=== PATIENT | female | born 1955 ===

== ENCOUNTER 2018-03-10 06:12 | Day surgery (SDC) | payer OTHER ==
[2018-03-07 11:29] LABS: Urine Appearance CLEAR; Urine Bilirubin NEGATIVE (NEG); Urine Blood NEGATIVE (NEG); Urine Color YELLOW; Urine Glucose NEGATIVE (NEG); Urine Protein NEGATIVE (NEG); Urine Urobilinogen 0.2 mg/dL (0.2-1.0); Urine pH 6.5 (5.0-7.0)
[2018-03-07 11:30] LABS: Absolute Lymphocytes (CBC) 1.8 K/uL (0.7-4.9); Absolute Monocytes 0.5 K/uL (0.1-1.3); Absolute Neutrophil 4.2 K/uL (1.8-8.0); Basophils % 0.3 % (0-1.3); Eosinophils % 1.7 % (0-4.4); Hematocrit 40.7 % (36.0-45.0); Lymphocytes % 26.7 % (15.3-44.8); MCH 31.3 pg (27.0-35.0); MPV 9.9 fL (7.6-11.3); Monocytes % 7.6 % (3.3-12.3); RBC Red Blood Cell Count 4.42 M/uL (3.86-4.86)
[2018-03-07 11:36] LABS: Urine Microscopic Reflex NO UMIC
[2018-03-07 11:40] LABS: Bicarbonate 29 mEq/L (21-31); Glucose Level 100 mg/dL (65-120); Potassium 4.2 mEq/L (3.6-5.0); Sodium Level 140 mEq/L (135-145)
[2018-03-07 11:41] LABS: BUN Blood Urea Nitrogen 19 mg/dL (6-20)
[2018-03-07 11:42] LABS: Protime INR 0.93
--- OUTSIDE RECORDS SUMMARY | 2018-03-10 06:17 | XMS REPORT ---
:1955 Author Organization eClinicalWorks Care Team Providers Name Role Phone Rupali Shay Provider Role Unavailable Allergies, Adverse Reactions, Alerts Substance Reaction Event Type Lodine Info Not Available Drug Allergy Vicodin Info Not Available Drug Allergy Pepcid Info Not Available Drug Allergy Problems Problem Type Condition Code Onset Dates Condition Status Assessment Bladder mass N32.89 Active Problem Bladder mass N32.89 Active Medications Medication Code Code Instructions Start End Status Dosage System Date Date Calcium [facility] 22349681310 600 MG Orally Active 1 tablet Twice a day with meals Aleve ND 75430227702 220 MG Orally Active 1 tablet every 12 hrs with food or milk as needed Cipro ND 56255650519 500 MG Orally February 02, Active 1 tablet Once a day 2017 Mirapex [facility] 33751230004 0.125 MG Orally Active 1 tablet Once a day before bedtime Tylenol ND 63531425240 325 MG Orally Active 1 tablet every 4 hrs as needed Omeprazole ND 81609661591 40 MG Orally Active 1 capsule Once a day Multi Vitamin [facility] 67436768953 - Orally Once a Active 1 tablet day Premarin ND 38138006329 0.625 MG/GM Active not Vaginal defined Results Name Result Date Reference Range Unit Abnormality Flag URINALYSIS with rfx to URINE CULTURE URINALYSIS AUTO W/O SCOPE (85047) ----KARINA neg [id number] ----NIT neg [id number] ----PROTEIN neg [id number] ----pH 5.5 20180202 ----GLUCOSE neg [id number] ----KETONES neg [id number] ----SPECIFIC GRAVITY 1.020 20180202 ----BLO neg [id number] PVR ----PVR 40 [id number] Summary Purpose eClinicalWorks Submission
--- OUTSIDE RECORDS SUMMARY | 2018-03-10 06:17 | XMS REPORT ---
[...] Start End Status Dosage System Date Date Premarin [facility] 04617385433 0.625 MG/GM Active not Vaginal defined Multi Vitamin [facility] 40266181955 - Orally Once a Active 1 tablet day Omeprazole ND 76392823700 40 MG Orally Active 1 capsule Once a day Aleve ND 00992320318 220 MG Orally Active 1 tablet every 12 hrs with food or milk as needed Tylenol ND 86026453480 325 MG Orally Active 1 tablet every 4 hrs as needed Cipro ND 23958679756 500 MG Orally February 02, Active 1 tablet Once a day 2017 Mirapex [facility] 76281940121 0.125 MG Orally Active 1 tablet Once a day before bedtime Calcium [facility] 50194124394 600 MG Orally Active 1 tablet Twice a day with meals Results Name Result Date Reference Range Unit Abnormality Flag URINALYSIS AUTO W/O SCOPE (01711) ----KARINA neg [id number] ----NIT neg 20180301 ----PROTEIN neg 20180301 ----pH 6.0 20180301 ----GLUCOSE neg 20180301 ----KETONES neg 20180301 ----SPECIFIC GRAVITY 1.010 20180301 ----BLO neg [id number] Summary Purpose eClinicalWorks Submission
--- OUTSIDE RECORDS SUMMARY | 2018-03-10 06:17 | XMS REPORT ---
:1955 Author Organization eClinicalWorks Care Team Providers Name Role Phone Pajaro, Rupali Provider Role Unavailable Allergies No Known Allergies Problems Problem Type Condition Code Onset Dates Condition Status Problem Bladder mass N32.89 Active Medications No Known Medications Results No Known Results Summary Purpose eClinicalWorks Submission
--- OUTSIDE RECORDS SUMMARY | 2018-03-10 06:17 | XMS REPORT ---
:1955 Author Organization eClinicalWorks Care Team Providers Name Role Phone Rupali Shay Provider Role Unavailable Allergies No Known Allergies Problems Problem Type Condition Code Onset Dates Condition Status Problem Bladder mass N32.89 Active Medications Medication Code Code Instructions Start End Status Dosage System Date Date Ciprofloxacin HCl [facility] 50378783109 500 MG Orally 1 February 24, February 25, Active 1 tablet tab 1 hour 2017 2017 prior to appointment Results No Known Results Summary Purpose eClinicalWorks Submission
[2018-03-10] MEDS ORDERED: Ringers Lactate 1,000 ML IV ONE ×5 (06:22→19:49)
[2018-03-10] MEDS ORDERED: NA CHLORIDE 0.9% 100 ML IV ONE (06:58)
[2018-03-10] MEDS ORDERED: CEFAZOLIN/SWI 1gm 1 GM/10 ML SYR ONE (06:58)
[2018-03-10] MEDS ORDERED: PROPOFOL 200 MG/20 ML VIAL IV ONE (07:19)
[2018-03-10] MEDS ORDERED: FENTANYL CITR 250 MCG/5 ML ONE (07:20)
[2018-03-10] MEDS ORDERED: ROCURONIUM 50 MG/5 ML VIAL IV ONE ×3 (07:20→11:33)
[2018-03-10] MEDS ORDERED: MIDAZOLAM HCL 2 MG/2 ML INJ ONE (07:21)
[2018-03-10] MEDS ORDERED: ONDANSETRON HCL 40 MG/20 ML VIAL ONE ×2 (07:22→11:57)
[2018-03-10] MEDS: VASOPRESSIN 20 UNIT/ML VIAL ONE ×2 (07:23→08:15)
[2018-03-10] MEDS ORDERED: LIDOCAINE 1% MPF 2 ML AMPULE ONE (07:23)
[2018-03-10] MEDS: CEFAZOLIN/SWI 2gm 2 GM/20 ML SYR IV SCH ×2 (07:24→07:33)
[2018-03-10] MEDS ORDERED: DEXAMETHASONE 10 MG/ML VIAL ONE (07:48)
[2018-03-10] MEDS ORDERED: GLYCOPYRROLATE 0.2 MG/ML SYR ONE (10:41)
[2018-03-10] MEDS ORDERED: NEOSTIGMINE 1 MG/ML -5 ML SYRINGE ONE (10:41)
[2018-03-10] MEDS ORDERED: CEFAZOLIN SODIUM 1 GM/VIAL ONE (11:41)
[2018-03-10] MEDS ORDERED: NS 0.9% VIAL 10 ML ONE (11:41)
[2018-03-10] MEDS ORDERED: LIDOCAINE 1% W/EPI 1:100,000 MDV 50 ML VIAL ONE (11:42)
[2018-03-10 13:00] VITALS: O2SAT 95
[2018-03-10] MEDS ORDERED: ACETAMINOPHEN 325 MG TABLET ONE (13:24)
[2018-03-10] MEDS: ACETAMINOPHEN 325 MG TABLET PO PRN (13:30)
[2018-03-10] MEDS ORDERED: Morphine 2 MG/2 ML SYR IV PRN (13:41)
[2018-03-10 13:42] VITALS: BMI 36.7
[2018-03-10] MEDS ORDERED: PROMETHAZINE 25 MG/ML VIAL IV PRN ×2 (13:42→13:43)
[2018-03-10] MEDS ORDERED: Ringers Lactate 1,000 ML IV SCH (14:00)
[2018-03-10] MEDS: CEFAZOLIN/SWI 1gm 1 GM/10 ML SYR IV SCH (19:30)
[2018-03-11] MEDS: CEFAZOLIN/SWI 1gm 1 GM/10 ML SYR IV SCH (05:00)
[2018-03-11] MEDS ORDERED: CEFAZOLIN/SWI 1gm 1 GM/10 ML SYR ONE (05:05)
[2018-03-11 06:51] LABS: Absolute Monocytes 1.1 K/uL (0.1-1.3); Absolute Neutrophil 11.3 K/uL (1.8-8.0); Basophils % 0.3 % (0-1.3); Hematocrit 34.2 % (36.0-45.0); Lymphocytes % 13.9 % (15.3-44.8); MCH 30.5 pg (27.0-35.0); MCV 92.9 fL (80-100); Monocytes % 7.4 % (3.3-12.3); RBC Red Blood Cell Count 3.68 M/uL (3.86-4.86)
[2018-03-11] MEDS: ACETAMINOPHEN 325 MG TABLET PO PRN (07:22)
[2018-03-11 08:15] VITALS: BP 129/67; TEMP 98.2
--- NOTE | 2018-03-11 09:26 | OP ---
Date of Procedure: 03/10/2018 Surgeon: Almaz Buckley MD Garbage Collector: Leann Littlejohn. Preoperative Diagnoses: Stage II anterior wall prolapse, stage III posterior wall prolapse, and stag e II apical prolapse, stress urinary incontinence. Postoperative Diagnoses: Stage II anterior wall prolapse, stage III posterior wall prolapse, and sta ge II apical prolapse, stress urinary incontinence, and posterior enterocele, perineocele. Procedures Performed: 1.Cystocele repair with sutures alone (primary repair). 2.Bilateral sacrospinous ligament fixation, colpopexy. 3.Posterior wall repair with graft augmentation using Xenform biologic graft. This includes the pos terior enterocele repair, perineorrhaphy, and perineocele repair. 4.Mid urethral sling (TVT-O) and cystoscopy. Anesthesia: General. Estimated Blood Loss: 200. Urine Output: 300. Drains: House catheter and vaginal packing. Complications: No complications. Condition: Patient's condition is stable. Indications: The patient is a 62-year-old with vaginal prolapse symptoms. Has been my patient for a bout over 2 years. She has had bulge symptoms and voiding dysfunction symptoms. She has been placed on a vaginal pessary for 2 years. During the use of this, there were vaginal erosions from the pess tonya that were treated with local hormone therapy. However, the patient feels quite frustrated with t he pessary management and wanted to get surgical management for definitive therapy. Description Of Procedure: After informed consent was discussed and done, she was brought to the OR. She was consented for an anterior prolapse repair with synthetic graft augmentation because of the s uspicion that there was a significant lateral drop as well; however, later on in the intraoperative f indings, she did not need the synthetic graft. Going back again to the preop, she was also counseled about biologic Xenform graft augmentation in the posterior compartment if the defect is large or tis bret is very poor; however, primary repair is the most commonest repair and there is no indication for any synthetic posterior wall repair with graft augmentation. Due to the DARY, the plan was to put in a mid urethral sling transobturator approach. The patient was consented and taken to the OR. 2 g of Ancef were given. The patient was taken back to the OR, placed in supine fashion on the opera ting table. General anesthesia was given. She was placed in dorsal lithotomy position using Chris s tirrups in the lithotomy position. Lower abdomen, vulva, vagina, and perineum were prepped and drape d in a sterile fashion. House was placed to drain the bladder. Then, pelvic exam was performed. At this point, her POP-Q was 0, 0, -1 . On examination of the lateral sulci in the anterior wall, they were intact. The cystocele appeared to be mostly midline. The urethrovesical junction al though seemed to be preserved, its dislocation was mild. An Allis clamp was placed at the area just proximal to the urethrovesical junction and another Allis placed in the midline right above the level of the vaginal apex. The vaginal apices were held with t he help of Allis clamps, so that the apex could be noted. Dilute vasopressin 20 cc was injected here in the midline and laterally, dissection was carried to separate the vaginal epithelium and separate the epithelium from the fascial layer on the anterior wall. Once this was done after opening up the entire incision using the 15 blade and then Metzenbaum scissors, the entire bladder that was bulging was visualized. Three 2-0 PDS sutures were placed in horizontal mattress fashion from side to side after identifying the good pubocervical fascia . Then these 3 sutures were first placed an d the distal most suture was placed at the level right above the bladder neck as a Christy p lication suture. Once these all were tied down, then the vaginal epithelium was closed with the help of a 2-0 Vicryl in a continuous running horizontal mattress fashion. This reduced the bulge in a ve ry optimal fashion without any vaginal shortening. Proceeded with posterior wall repair. Injection with dilute vasopressin was conducted. 30 cc were i njected in the posterior wall. Then the perineum and the posterior wall were opened up with a triang ular incision on the perineum and the midline incision on the posterior wall. Vaginal epithelium ___ were dissected away from the rectovaginal septum and its remnants. About 4 cm proximal to th e hymenal ring, there was evidence of no fascial layer. There was a large posterior enterocele that needs encompassing about 4 cm of the vaginal wall. This was carefully dissected all the way to the l ateral attachments, and once the entire posterior enterocele was dissected free, it was well visualiz ed on all sides. There was hemostasis that needed to be secured with 3-0 Vicryl interrupted sutures in multiple places . At all times, good hemostasis was maintained. posterior e nterocele was dissected the rectovaginal septum was isolated. There was a large defect th at could not be gapped with the help of sutures reattaching the proximal part of the rectovaginal sep jerzy the vaginal apex. At this point, plan was made to use Xenform biologic graft __ the ischial spines were palpated on both sides. They were somewhat less prominent; however, sacro spinous ligaments should be accessible no matter how the with this. After opening the pararectal space on the right and then on the left side, dissection was carried to the level of the ischial spine medially and posteriorly towards the coccyx. The sacrospin ous ligament was isolated from the coccygeus muscles, first on the right side then on the left side _ was left in place. I plicated posterior enterocele. The peritoneum was plicated together with the help of 2-0 Vicryl avila ture in a pursestring fashion being careful to get all the way up to the level of the vagi nal apex. The whole enterocele was closed in a 4 cm distance. Once this was well reduced, then the rectovaginal septum was brought together with the help of interrupted 2-0 PDS x3. Then the perineal body was visualized. The perineal body was held with clamps. There was evidence of no perineal body in the midline. So laterally dissection was carried to open up the cut ends of the super ficial transverse perineal and deep transverse perineal muscles. Once this was done, then all these were brought together with a finger in the rectum check and make sure that we did not go deep enough, and all the transverse muscles were brought together with interrupted 2-0 Vicryl sutures. Without a ny problems, about 8 sutures were placed in 2 layers, 4 sutures in each layer. Once this was brought together, there was excellent perineal body. So at this point, we checked to make sure that there w as no narrowing at the level of the levators. The levators were not plicated together fin hazel showed that the plication was optimal the perineal body was thick. The genital hiatus was down to 3.5 cm. Then, I went back up on the right sacrospinous ligament. Prolene suture was used, 2 cm medial and po sterior to the ischial spine, this was placed. There was a good bite opposite sacrospinou s ligament as well. Capio device was used to take a Prolene bite. This appeared to be a little bit more lateral than the prior stitch location on the sacrospinous ligament. Both these were held on curved clamp. Then three 2-0 Prolene sutures were placed, one in the midline and the other a centimeter and half from the midline where the attachment of the uterosacral ligamen ts would be. These were picked up with Allis clamps and made sure that the Prolene did not _ vaginal lining or was too close to it. Once these sutures were placed, there were held on . Two PDS sutures were placed about 4 to 5 cm from the hymenal ring on the lateral vagi nal wall on the posterior side. These sutures were held on long hemostats and . Opened the biologic Xenform graft. The graft was trimmed to 8 cm in its largest distance from 12 and the length was trimmed down 1 cm. Arms were created on each side that were about a centimeter on ea ch side. Then, the 7 cm of the graft was left in place with markings for each centimeter in the dist al part so that it could be trimmed as needed. the sutures were all marked as well and then the graft introduced. All the 5 sutures at t he apex starting at the left sacrospinous, all of the apical sutures, and the right sacrospinous were all anchored. The sacrospinous sutures . Once this was done, these were all passed and t hey were all tied down systematically from left to right. The middle 3 were tied and then the left and right sacrospinous sutures were tied. Once this was all done in anterior as pect, the vaginal epithelium was started to be closed. There was erosion on the left side of the inc ision at the apex. 2-0 Vicryl was used in a continuous running locked fashion to place st itches. These were left in place and then . Then went on to attach the biologic graft to the lateral mcginnis and one more fixation about 2 cm distal to the first PDS. Two sutures w ere done on the same side. perineal body was rebuilt in the center. I put another 2-0 PD S suture, 1 on each side to tack the graft down to the perineal body. Once this was all satisfactory and the entire graft was laid flat and the apex appeared to be pulled up well enough and vaginal muc christiano was trimmed probably about half a centimeter on each side, then the scar in the posterior aspect was also excised from her deliveries most likely. continuous running closure of the vagin al epithelium in a horizontal mattress fashion was done to the level of the hymen. Then 3-0 Vicryl w as used to close the subcutaneous in subcuticular fashion to close the perineal incisions. Rectal ex am was performed. No evidence of any trauma or foreign body in the rectum. Sacrospinous sutures wer e also fine. Mid urethral sling was started. 1 cm mid urethral incision was made after injecting dilute _lidocaine. The patient was in high lithotomy. Then dissection was performed to the ipsilateral inf erior pubic ramus. pointing at the ipsilateral shoulder. Once the track was created on t he right and left placed first on the right then on the left. trocars removed. Mesh graft held with Christy's tensioning was done with the help of Metzenbaum scissors in the midline between the urethra and the graft. Once these were tensioned, the sheaths were pulled o ut. The vaginal mesh was cut very close to the skin . The skin incisions were closed with the help of Dermabond, mid urethral incision closed with the help of 3-0 Vicryl in a cont inuous running locked fashion. There was excellent hemostasis. The EBL was minimal, and now after r emoving the House, cystoscopy was performed. The House had at least of urine. Then, once the cysto was performed, there was excellent visualization of the entire bladder. Both u reteric orifices were well visualized. There were strong jets of urine from each of the ureteric maryjo fices. No other abnormalities were seen. cystoscopy to confirm that there was no uretera l obstruction from sacrospinous fixation. The vagina was packed after the bladder was drained and the patient was recovered from anesthesia. I nstrument, needle, and sponge counts x3 were correct at the end of the case. The patient tolerated t he procedure well. she will be admitted on the outpatient side of the hospital in a bed, and she will follow up with me in 1 week. I will have voiding trials tomorrow. Second gram of Ancef was given. DONG/STACY Voice ID: [id number] Report ID: [id number]
== END 2018-03-11 10:45 | disposition home or self-care (01) ==
LOC: OR 06:12 → 2ND-WC 13:33 → OR 03-11 10:45
PROVIDERS: ATTEND Obstetrics & Gynecology
PROC: 0JQC0ZZ Repair Pelvic Region Subcutaneous Tissue and Fascia, Open Approach (ICD-10-PCS; 2018-03-10)
PROC: 0JUC0JZ Supplement of Pelvic Region Subcutaneous Tissue and Fascia with Synthetic Substitute, Open Approach (ICD-10-PCS; 2018-03-10)
PROC: 0WQNXZZ Repair Female Perineum, External Approach (ICD-10-PCS; 2018-03-10)
PROC: 0TSD0ZZ Reposition Urethra, Open Approach (ICD-10-PCS; 2018-03-10)
PROC: 0USG7ZZ Reposition Vagina, Via Natural or Artificial Opening (ICD-10-PCS; 2018-03-10)
PROC: 0UQF0ZZ Repair Cul-de-sac, Open Approach (ICD-10-PCS; principal; 2018-03-10 07:30)
DX: N99.3 Prolapse of vaginal vault after hysterectomy (principal); N81.12 Cystocele, lateral; N81.81 Perineocele; N39.3 Stress incontinence (female) (male); G47.33 Obstructive sleep apnea (adult) (pediatric); M19.90 Unspecified osteoarthritis, unspecified site; Z85.820 Personal history of malignant melanoma of skin; Z80.0 Family history of malignant neoplasm of digestive organs; Z80.3 Family history of malignant neoplasm of breast; Z80.49 Family history of malignant neoplasm of other genital organs
CPT/HCPCS: 36415 ×2; 57265; 57267; 57282; 57288; 80048; 81003; 85025 ×2; 85610; 85730; 86850; 86900; 86901; J0690 ×5; J1100; J2001; J2250; J2270; J2405 ×2; J2550; J2710

== ENCOUNTER 2018-05-13 08:30 | Day surgery (SDC) | payer OTHER ==
[~2018-05-13 08:30] MED LIST: Zoledronic Acid/Mannitol/Water 5 MG/100 ML INFUS.BOT IV ONE
--- OUTSIDE RECORDS SUMMARY | 2018-05-13 09:29 | XMS REPORT ---
:1955 Author Organization eClinicalWorks Care Team Providers Name Role Phone [place] Path, Rupali Provider Role Unavailable Allergies No Known Allergies Problems Problem Type Condition Code Onset Dates Condition Status Problem Bladder mass N32.89 Active Medications No Known Medications Results No Known Results Summary Purpose eClinicalWorks Submission
--- OUTSIDE RECORDS SUMMARY | 2018-05-13 09:29 | XMS REPORT ---
:1955 Author Organization eClinicalWorks Care Team Providers Name Role Phone Rupali Shay Provider Role Unavailable Allergies No Known Allergies Problems Problem Type Condition Code Onset Dates Condition Status Problem Bladder mass N32.89 Active Medications Medication Code Code Instructions Start End Status Dosage System Date Date Ciprofloxacin HCl [facility] 78369087520 500 MG Orally 1 February 24, February 25, Active 1 tablet tab 1 hour 2017 2017 prior to appointment Results No Known Results Summary Purpose eClinicalWorks Submission
--- OUTSIDE RECORDS SUMMARY | 2018-05-13 09:29 | XMS REPORT ---
[...] End Status Dosage System Date Date Calcium [facility] 88563488457 600 MG Orally Active 1 tablet Twice a day with meals Aleve ND 29046907586 220 MG Orally Active 1 tablet every 12 hrs with food or milk as needed Cipro ND 70504354366 500 MG Orally February 02, Active 1 tablet Once a day 2017 Mirapex [facility] 45836567475 0.125 MG Orally Active 1 tablet Once a day before bedtime Tylenol ND 82747253038 325 MG Orally Active 1 tablet every 4 hrs as needed Omeprazole ND 51008024054 40 MG Orally Active 1 capsule Once a day Multi Vitamin [facility] 60000641263 - Orally Once a Active 1 tablet day Premarin ND 57535668507 0.625 MG/GM Active not Vaginal defined Results Name Result Date Reference Range Unit Abnormality Flag URINALYSIS with rfx to URINE CULTURE URINALYSIS AUTO W/O SCOPE (58324) ----KARINA neg [id number] ----NIT neg 20180202 ----PROTEIN neg 20180202 ----pH 5.5 20180202 ----GLUCOSE neg 20180202 ----KETONES neg 20180202 ----SPECIFIC GRAVITY 1.020 20180202 ----BLO neg 20180202 PVR ----PVR 40 [id number] Summary Purpose eClinicalWorks Submission
--- OUTSIDE RECORDS SUMMARY | 2018-05-13 09:30 | XMS REPORT ---
[...] End Status Dosage System Date Date Premarin [facility] 07127836928 0.625 MG/GM Active not Vaginal defined Multi Vitamin [facility] 36544399252 - Orally Once a Active 1 tablet day Omeprazole ND 55588366248 40 MG Orally Active 1 capsule Once a day Aleve ND 14005336009 220 MG Orally Active 1 tablet every 12 hrs with food or milk as needed Tylenol ND 43163731000 325 MG Orally Active 1 tablet every 4 hrs as needed Cipro ND 59518126530 500 MG Orally February 02, Active 1 tablet Once a day 2017 Mirapex [facility] 11648601972 0.125 MG Orally Active 1 tablet Once a day before bedtime Calcium [facility] 85337966511 600 MG Orally Active 1 tablet Twice a day with meals Results Name Result Date Reference Range Unit Abnormality Flag URINALYSIS AUTO W/O SCOPE (85812) ----KARINA neg [id number] ----NIT neg 20180301 ----PROTEIN neg 20180301 ----pH 6.0 20180301 ----GLUCOSE neg 20180301 ----KETONES neg 20180301 ----SPECIFIC GRAVITY 1.010 20180301 ----BLO neg 20180301 Summary Purpose eClinicalWorks Submission
[2018-05-13 09:52] VITALS: BP 135/68; TEMP 97.4; O2SAT 96
[2018-05-13 09:55] VITALS: BMI 34.9
== END 2018-05-13 09:30 | disposition home or self-care (01) ==
LOC: DS 08:30
PROVIDERS: ATTEND Obstetrics & Gynecology
PROC: 3E033GC Introduction of Other Therapeutic Substance into Peripheral Vein, Percutaneous Approach (ICD-10-PCS; principal; 2018-05-13)
DX: M81.0 Age-related osteoporosis without current pathological fracture (principal)
CPT/HCPCS: 96365 ×2; J3489

== ENCOUNTER 2019-05-15 08:27 | Day surgery (SDC) | payer OTHER ==
--- OUTSIDE RECORDS SUMMARY | 2019-05-15 08:29 | XMS REPORT ---
[...] End Status Dosage System Date Date Premarin [facility] 88121094360 0.625 MG/GM Active not Vaginal defined Multi Vitamin [facility] 86226285517 - Orally Once a Active 1 tablet day Omeprazole ND 49189919250 40 MG Orally Active 1 capsule Once a day Aleve ND 70595969500 220 MG Orally Active 1 tablet every 12 hrs with food or milk as needed Tylenol ND 19498525500 325 MG Orally Active 1 tablet every 4 hrs as needed Cipro ND 79388373950 500 MG Orally February 02, Active 1 tablet Once a day 2017 Mirapex [facility] 28319930583 0.125 MG Orally Active 1 tablet Once a day before bedtime Calcium [facility] 50937582622 600 MG Orally Active 1 tablet Twice a day with meals Results Name Result Date Reference Range Unit Abnormality Flag URINALYSIS AUTO W/O SCOPE (03027) ----KARINA neg [id number] ----NIT neg 20180301 ----PROTEIN neg 20180301 ----pH 6.0 20180301 ----GLUCOSE neg 20180301 ----KETONES neg 20180301 ----SPECIFIC GRAVITY 1.010 20180301 ----BLO neg 20180301 Summary Purpose eClinicalWorks Submission
--- OUTSIDE RECORDS SUMMARY | 2019-05-15 08:29 | XMS REPORT ---
:1955 Author Organization eClinicalWorks Care Team Providers Name Role Phone Verden, Rupali Provider Role Unavailable Allergies No Known Allergies Problems Problem Type Condition Code Onset Dates Condition Status Problem Bladder mass N32.89 Active Medications No Known Medications Results No Known Results Summary Purpose eClinicalWorks Submission
--- OUTSIDE RECORDS SUMMARY | 2019-05-15 08:29 | XMS REPORT ---
:1955 Author Organization eClinicalWorks Care Team Providers Name Role Phone Rupali Shay Provider Role Unavailable Allergies No Known Allergies Problems Problem Type Condition Code Onset Dates Condition Status Problem Bladder mass N32.89 Active Medications Medication Code Code Instructions Start End Status Dosage System Date Date Ciprofloxacin HCl [facility] 01139387281 500 MG Orally 1 February 24, February 25, Active 1 tablet tab 1 hour 2017 2017 prior to appointment Results No Known Results Summary Purpose eClinicalWorks Submission
--- OUTSIDE RECORDS SUMMARY | 2019-05-15 08:29 | XMS REPORT ---
:1955 [facility] Address [address] [place] [address] Dr. Doty [address] [place] [id number] Care Team Providers Name Role Phone Unavailable Unavailable Unavailable Problems This patient has no known problems. Allergies, Adverse Reactions, Alerts This patient has no known allergies or adverse reactions. Medications This patient has no known medications.
--- OUTSIDE RECORDS SUMMARY | 2019-05-15 08:29 | XMS REPORT ---
[...] End Status Dosage System Date Date Calcium [facility] 37388715147 600 MG Orally Active 1 tablet Twice a day with meals Aleve ND 19357116855 220 MG Orally Active 1 tablet every 12 hrs with food or milk as needed Cipro ND 49852611366 500 MG Orally February 02, Active 1 tablet Once a day 2017 Mirapex [facility] 98397310394 0.125 MG Orally Active 1 tablet Once a day before bedtime Tylenol ND 21542649938 325 MG Orally Active 1 tablet every 4 hrs as needed Omeprazole ND 64648272968 40 MG Orally Active 1 capsule Once a day Multi Vitamin [facility] 26188204871 - Orally Once a Active 1 tablet day Premarin ND 73149291320 0.625 MG/GM Active not Vaginal defined Results Name Result Date Reference Range Unit Abnormality Flag URINALYSIS with rfx to URINE CULTURE URINALYSIS AUTO W/O SCOPE (29658) ----KARINA neg [id number] ----NIT neg 20180202 ----PROTEIN neg 20180202 ----pH 5.5 20180202 ----GLUCOSE neg 20180202 ----KETONES neg 20180202 ----SPECIFIC GRAVITY 1.020 20180202 ----BLO neg 20180202 PVR ----PVR 40 [id number] Summary Purpose eClinicalWorks Submission
--- OUTSIDE RECORDS SUMMARY | 2019-05-15 08:29 | XMS REPORT ---
:1955 Author Organization eClinicalWorks Care Team Providers Name Role Phone Elton Johnston Provider Role Unavailable Allergies, Adverse Reactions, Alerts Substance Reaction Event Type Lodine Info Not Available Drug Allergy Vicodin Info Not Available Drug Allergy Pepcid Info Not Available Drug Allergy Problems Problem Type Condition Code Onset Dates Condition Status Assessment Bladder mass N32.89 Active Problem Bladder mass N32.89 Active Medications Medication Code Code Instructions Start End Status Dosage System Date Date Premarin [facility] 23130147485 0.625 MG/GM Active not Vaginal defined Aleve ND 34461248002 220 MG Orally Active 1 tablet every 12 hrs with food or milk as needed Cipro ND 90448134388 500 MG Orally February 02, Active 1 tablet Once a day 2017 Tylenol [facility] 05878977092 325 MG Orally Active 1 tablet every 4 hrs as needed Multi Vitamin [facility] 06036744719 - Orally Once a Active 1 tablet day Mirapex ND 20110951190 0.125 MG Orally Active 1 tablet Once a day before bedtime Calcium [facility] 61474162662 600 MG Orally Active 1 tablet Twice a day with meals Omeprazole [facility] 68988743295 40 MG Orally Active 1 capsule Once a day Results Name Result Date Reference Range Unit Abnormality Flag URINALYSIS AUTO W/O SCOPE (07760) ----NIT neg [id number] ----URO 0.2 20181004 ----PROTEIN neg 20181004 ----pH 5.5 20181004 ----BLO neg 20181004 ----GLUCOSE neg 20181004 ----KARINA neg 20181004 ----BILIRUBIN neg 20181004 ----KETONES neg 20181004 ----SPECIFIC GRAVITY 1.015 20181004 Summary Purpose eClinicalWorks Submission
--- OUTSIDE RECORDS SUMMARY | 2019-05-15 08:29 | XMS REPORT ---
:1955 Author Organization eClinicalWorks Care Team Providers Name Role Phone Rupali Shay Provider Role Unavailable Allergies No Known Allergies Problems Problem Type Condition Code Onset Dates Condition Status Problem Bladder mass N32.89 Active Medications Medication Code System Code Instructions Start Date End Date Status Dosage Cipro [facility] 26585250859 500 MG Orally one Sep 29, Sep 30, Active 1 tablet time 2017 2017 Results No Known Results Summary Purpose eClinicalWorks Submission
[2019-05-15] MEDS ORDERED: Zoledronic Acid/Mannitol/Water 5 MG/100 ML INFUS.BOT IV ONE (08:45)
[2019-05-15 09:13] VITALS: BP 134/70; TEMP 98.1; O2SAT 94; BMI 20.5
== END 2019-05-15 09:32 | disposition home or self-care (01) ==
LOC: DS 08:27
PROVIDERS: ATTEND Clinical Nurse Specialist Women's Health
DX: M81.8 Other osteoporosis without current pathological fracture (principal)
CPT/HCPCS: 96365; J3489

== ENCOUNTER 2020-05-21 08:20 | Day surgery (SDC) | payer OTHER ==
[2020-05-21] MEDS ORDERED: Zoledronic Acid/Mannitol/Water 5 MG/100 ML INFUS.BOT IV ONE (08:30)
[2020-05-21 09:05] VITALS: BP 131/71; TEMP 97.8; O2SAT 96; BMI 36.0
--- OUTSIDE RECORDS SUMMARY | 2020-05-21 09:16 | XMS REPORT | Summary of Care ---
:1955 Author Organization [facility] Address [address] [place] [id number] Care Team Providers Name Role Phone Alex Salinas MD Primary Care Provider Reason for Referral Radiology Services (Routine) Status Reason Specialty Diagnoses / Referred By Referred To Procedures Contact Contact Closed Diagnostic Diagnoses Osteoporosis without current pathological fracture, unspecified osteoporosis type Monical, Radiology Procedures DEXA AXIAL (HIP AND SPINE) [facility] [address] [place] [address] Reason for Visit Radiology Services (Routine) Status Reason Specialty Diagnoses / Referred By Referred To Procedures Contact Contact Closed Diagnostic Diagnoses Osteoporosis without current pathological fracture, unspecified osteoporosis type Monical, Radiology Procedures DEXA AXIAL (HIP AND SPINE) [facility] [address] [place] [address] Encounter Details Date Type Department Care Team Description 04/24/2020 Hospital Encounter [facility] [place] [facility] [address] [address] [place] [address] Allergies Active Allergy Reactions Severity Noted Date Comments Etodolac Rash 01/21/2015 Famotidine (Pf) Nausea and/or Vomiting 01/21/2015 Hydrocodone-Acetaminophen Hives 01/21/2015 documented as of this encounter (statuses as of 04/25/2020) Medications Medication Sig Dispensed Refills Start Date End Date Status omeprazole (PRILOSEC) Take 20 mg by 0 Active 20 mg capsule mouth daily. NAPROXEN SODIUM (ALEVE Take by mouth as 0 Active ORAL) needed. benzonatate 200 mg Take 1 capsule by 30 capsule 1 01/30/2019 Active capsuleIndications: mouth 3 (three) Bronchitis times daily as needed for Cough. PRAMIPEXOLE 0.25 mg TAKE 1 TABLET BY 90 tablet 1 09/27/2019 Active tabletIndications: MOUTH EVERYDAY AT Restless leg syndrome BEDTIME Calcium-Cholecalcifero 0 Active l, D3, (CALCIUM 500 + D, D3,) 500 mg(1,250mg) -125 unit Tab fexofenadine HCl Take by mouth. 0 Active (ELINOR ORAL) documented as of this encounter (statuses as of 04/25/2020) Active Problems Problem Noted Date Osteopenia 01/21/2015 GERD (gastroesophageal reflux disease) 01/21/2015 Osteoarthritis 01/21/2015 Allergic rhinitis 01/21/2015 Insomnia 01/21/2015 Melanoma 01/21/2015 Overview: Left foot Diverticulosis 01/21/2015 Restless leg syndrome 01/21/2015 Obesity 01/21/2015 Sleep apnea 01/21/2015 Macular degeneration 01/21/2015 Abnormal mammogram 01/21/2015 Overview: ICD10 Diagnosis Term Emergency Communications Officer Utility documented as of this encounter (statuses as of 04/25/2020) Immunizations Name Administration Dates Next Due TDAP 09/21/2017 Td 06/23/2017 documented as of this encounter Social History Tobacco Use Types Packs/Day Years Used Date Never Smoker Smokeless Tobacco: Never Used Alcohol Use Drinks/Week oz/Week Comments Yes 1 Shots of liquor 1.0 Sex Assigned at Date Recorded Not on file Job Start Date Occupation Industry Not on file Not on file Not on file Travel History Travel Start Travel End No recent travel history available. COVID-19 Exposure Response Date Recorded In the last month, have you been in contact with No / Unsure 04/24/2020 8:50 AM CDT someone who was confirmed or suspected to have Coronavirus / COVID-19? documented as of this encounter Last Filed Vital Signs Not on filedocumented in this encounter Plan of Treatment Date Type Specialty Care Team Description 01/01/2021 Office Visit Pulmonary Disease Celestina Barajas MD [address] [address] 15 [phone] Health Maintenance Due Date Last Done Comments Zoster Recombinant Vaccine 01/01/2004 (SHINGRIX) (1 of 2) PNEUMOCOCCAL VACCINES 65+ (1 of 2 2018 - PCV13) INFLUENZA VACCINE (#1) 2020 Medicare Wellness Visit 06/22/2020 06/22/2019 Breast Cancer Screening 11/15/2020 11/15/2019, 11/14/2018, (MAMMOGRAM) 11/10/2017, Additional history exists Depression Screening 12/26/2020 12/27/2019 COLONOSCOPY 02/24/2023 02/24/2018, 03/29/2012 (Previously completed) DTaP,Tdap,and Td Vaccines (2 - Td) 09/21/2027 09/21/2017, 0 06/23/2017 Osteoporosis Screening 04/14/2028 04/14/2018, 01/15/2017 HEPATITIS C (HCV) SCREEN Completed 06/26/2019 documented as of this encounter Procedures Procedure Name Priority Date/Time Associated Diagnosis Comme nts DEXA AXIAL (HIP AND Routine 04/24/2020 9:38 Osteoporosis with out Results for this SPINE) AM CDT current pathological procedu re are in fracture, unspecified the re sults osteoporosis type section. documented in this encounter Results DEXA AXIAL (HIP AND SPINE) (04/24/2020 9:38 AM CDT) Specimen Narrative Performed At HISTORY: Screening for osteoporosis. PACS/VR/DOSE TECHNIQUE: Bone density estimation is done using DEXA scan, over the right hip and lumbar spines. FINDINGS: Comparison is made with 018 study. Details of the results are enclosed for your review. The summary is as follows. RIGHT HIP: BMD value is 0.853 gm/sq cm, with T-scor e of -1.2. Estimated BMD in the neck is 0.828 g/sq cm with T score of - 1.5. No signif icant interval change in the estimated BMD values when compare d with 2017 study. LUMBAR SPINES: Average BMD value from L1 through L4 is 1.229 gm/sq cm , with T-score 0.3. Lower lumbar dextroscoliosis noted with mild changes o f degenerative disc disease of the left-sided L3-L4. No sign ificant interval change in the estimated BMD values since 2018 study. CONCLUSION: Mild osteopenia in right femur, essentia lly unchanged since 2018 study. ASSESSMENT: WHO-definitions: T-score normal: +/- 1 SD around the mean osteopenia: >1 to 2.4 SD below the mean osteoporosis: >2.5 SD below the mean Fracture risk doubles for each 1.5 SD be low the mean. Procedure Note [facility], Radiant Results Inft User - 2019 9:43 AM CDT HISTORY: Screening for osteoporosis. TECHNIQUE: Bone density estimation is do ne using DEXA scan, over the right hip and lumbar spines. FINDINGS: Comparison is made with 018 study. Details of the results are enclosed for your review. The summary is as follows. RIGHT HIP: BMD value is 0.853 gm/sq cm, with T-scor e of -1.2. Estimated BMD in the neck is 0.828 g/sq cm with T score of - 1.5. No significant interval change in the estimated BMD values when compare d with 2017 study. LUMBAR SPINES: Average BMD value from L1 through L4 is 1.229 gm/sq cm, with T-score 0.3. Lower lumbar dextroscoliosis noted with mild changes of degenerative disc disease of the left-sided L3-L4. No sign ificant interval change in the estimated BMD values since 2017 study. CONCLUSION: Mild osteopenia in right femur, essentia lly unchanged since 2018 study. ASSESSMENT: WHO-definitions: T-score normal: +/- 1 SD around the mean osteopenia: >1 to 2.4 SD below the mean osteoporosis: >2.5 SD below the mean Fracture risk doubles for each 1.5 SD be low the mean. Performing Organization Address City/State/Zipcode Phone Number PACS/VR/DOSE documented in this encounter Visit Diagnoses Diagnosis Osteoporosis without current pathologica l fracture, unspecified osteoporosis type documented in this encounter Insurance Payer Benefit Plan Subscriber ID Effective Phone Address Typ e / Group Dates [employer]ET[employer] - [employer] [id number] 2017-Rajinder Stover [address] Me dicare Adv [place]NAGED [place]IC[place] [id number] [place] [address] documented as of this encounter
--- OUTSIDE RECORDS SUMMARY | 2020-05-21 09:16 | XMS REPORT | Continuity of Care Document ---
:1955 Author Organization [facility] t Address [address] [place] [address] Care Team Providers Name Role Phone Radiology Attending Clinician Unavailable Doctor Unassigned, Name Attending Clinician Unavailable Alex Salinas MD Attending Clinician Jenn BECKMAN, T Attending Clinician Payers Payer Name Policy Type Policy Number Effective Date Expiration Date S ource Problems Condition Condition Condition Status Onset Resolution Last Treating Co mments Source Name Details Category Date Date Treatment Clinician Date Bladder Bladder Problem Active [facility] Clinics Allergies, Adverse Reactions, Alerts Allergy Allergy Status Severity Reaction(s) Onset Inactive Treating Comm ents Source Name Type Date Date Clinician Lodine Adverse Active Info Not [facility] Reaction Available [facility] Clinics Vicodin Adverse Active Info Not [facility] Reaction Available [facility] Pepcid Adverse Active Info Not [facility] Reaction Available [facility] Medications Ordered Filled Start Stop Current Ordering Indication Dosage Frequency Signature Comments Components Source Medication Medication Date Date Medication? Clinician (SIG) Name Name Govindlore Yisel 2017-10 2018- No Rupali 1 tablet [facility] Clin[facility] Procedures This patient has no known procedures. Encounters Start End Encounter Admission Attending Care Care Encounter Source Date/Time Date/Time Type Type Clinicians Facility Department ID 2020-04-24 2020-04-24 Hospital Radiology [facility] [[email or web address]] [id number] 08:50:00 23:59:00 Encounter Michelle [id number] [place] [id number] [place] [id number] 2020-01-12 2020-01-12 Orders Doctor GUNNAR [id number] 00:00:00 00:00:00 Only Unassigned, VITALIY [id number] [place] [facility] [id number] 2020-01-10 2020-01-10 Telemedici [facility] [id number] 08:54:05 09:09:05 ne Visit [facility] [id number] [facility] [id number] Professio [phone] [place] [address] [address] 2020-01-08 2020-01-08 Telephone [facility] [id number] 00:00:00 00:00:00 [facility] [id number] [facility] [id number] Professio [phone] [place] [address] [address] 2019-12-27 2019-12-27 Office [facility] [id number] 10:53:32 11:23:32 Visit Aydin Martinez [id number] [place] [id number] Professio [phone] [facility] 2019-12-27 2019-12-27 Orders Doctor GUNNAR [id number] 00:00:00 00:00:00 Only Unassigned, VITALIY [id number] [place] [facility] [id number] 2018-10-04 2018-10-04 [facility] 09:[facility] 09:[facility]:00 t Specialty/[facility] - [facility] l Clinic Outpati ent Clinics 2018-09-27 2018-09-27 [place] [id number] [facility] 13:35:00 13:35:00 t Specialty/[facility] - [facility]Urology Clinic l Clinic Outpati ent Clinics 2018-03-01 2018-03-01 [facility] [id number] [facility] 09:00:00 09:00:00 t Specialty/U [facility] kes - Specialty ro[facility]y [facility]Urology Clinic l Clinic Outpati ent Clinics 2018-02-24 2018-02-24 [place] [facility] [id number] [facility] 13:53:00 13:53:00 t Specialty/U Lor kes - Specialty rology [facility]Urology Clinic l Clinic Outpati ent Clinics 2018-02-15 2018-02-15 [place] [facility] [id number] [facility] 16:56:00 16:56:00 t Specialty/U Lor kes - Specialty rology [facility]Urology Clinic l Clinic Outpati ent Clinics 2018-02-02 2018-02-02 [place] [id number] [facility] 11:00:00 11:00:00 t Specialty/U Lor kes - Specialty rology [facility]Urology Clinic l Clinic Outpati ent Clinics Results This patient has no known results.
== END 2020-05-21 09:20 | disposition home or self-care (01) ==
LOC: DS 08:20
PROVIDERS: ATTEND Clinical Nurse Specialist Women's Health
DX: M81.8 Other osteoporosis without current pathological fracture (principal)
CPT/HCPCS: 96365; J3489

== ENCOUNTER 2021-04-18 07:58 | Day surgery (SDC) | payer OTHER ==
[2021-04-18] MEDS ORDERED: Zoledronic Acid/Mannitol/Water 5 MG/100 ML INFUS.BOT IV ONE (08:15)
[2021-04-18 09:42] VITALS: BP 118/61; TEMP 97.1; O2SAT 97; BMI 38.6
== END 2021-04-18 09:22 | disposition home or self-care (01) ==
LOC: DS 07:58
PROVIDERS: ATTEND Clinical Nurse Specialist Women's Health
DX: M81.0 Age-related osteoporosis without current pathological fracture (principal)
CPT/HCPCS: 96365; J3489

== ENCOUNTER 2022-04-22 08:05 | Day surgery (SDC) | payer OTHER ==
[2022-04-22] MEDS ORDERED: Zoledronic Acid/Mannitol/Water 5 MG/100 ML INFUS.BOT IV ONE (08:30)
[2022-04-22 09:47] VITALS: BMI 38.0
[2022-04-22 09:49] VITALS: BP 115/65; TEMP 96.5; O2SAT 99
== END 2022-04-22 09:13 | disposition home or self-care (01) ==
LOC: DS 08:05
PROVIDERS: ATTEND Obstetrics & Gynecology
DX: M81.0 Age-related osteoporosis without current pathological fracture (principal)
CPT/HCPCS: 96365; J3489